=== PATIENT | female | born 1965 | race Caucasian/White ===

== ENCOUNTER → 2016-12-15 | Outpatient (CLI) | payer BC ==
[~2016-12-15] MED LIST: IBUP-103 PO; MULT-506 PO; OMEG10007 PO
== END | disposition home or self-care (01) ==
LOC: C.PAPS 10:43
PROVIDERS: ATTEND Obstetrics & Gynecology
DX: Z01.419 Encounter for gynecological examination (general) (routine) without abnormal findings (principal)

== ENCOUNTER → 2017-01-10 | Outpatient (CLI) | payer BC ==
--- NOTE | 2017-01-10 16:06 | MAMMOGRAPHY REPORT ---
BILATERAL DIGITAL SCREENING MAMMOGRAM TOMOSYNTHESIS WITH CAD: 01/10/2017 CLINICAL HISTORY: Routine screening. TECHNIQUE: Breast tomosynthesis in addition to standard 2D mammography was performed. Current study was also evaluated with a Computer Aided Detection (CAD) system. COMPARISON: Comparison is made to exams dated: 01/07/2016 mammogram, 01/02/2015 mammogram, 07/16/2014 eduardo mogram, 11/09/2013 mammogram, 10/19/2012 mammogram, and 10/06/2011 mammogram - [facility] BREAST COMPOSITION: The tissue of both breasts is heterogeneously dense, which may obscure small mas ses. FINDINGS: There is a possible cluster of faint microcalcifications in the upper outer middle one thi rd of the right breast, for which additional spot magnification views are recommended. No other suspicious mass, architectural distortion or cluster of microcalcifications is seen. IMPRESSION: ACR BI-RADS CATEGORY 0: INCOMPLETE EVALUATION: NEED ADDITIONAL IMAGING EVALUATION The possible cluster of microcalcifications in the right upper outer breast needs additional evaluati on. The patient will be called to schedule an appointment. Approximately 10% of breast cancers are not detected with mammography. A negative mammographic report should not delay biopsy if a clinically suggestive mass is present. Kendal De La Rosa M.D. ay/:01/10/2017 15:50:49 Sports Management Internship: Parviz VAZQUEZ(Lyndon)(M), [facility] letter sent: Addl Imaging 0 BI-RADS Code: ACR BI-RADS Category 0: Incomplete Evaluation: Need Additional Imaging Evaluation
== END | disposition home or self-care (01) ==
LOC: C.MAMM 07:43
PROVIDERS: ATTEND Obstetrics & Gynecology
DX: Z12.31 Encounter for screening mammogram for malignant neoplasm of breast (principal)

== ENCOUNTER → 2017-01-18 | Outpatient (CLI) | payer BC ==
--- NOTE | 2017-01-18 15:58 | MAMMOGRAPHY REPORT ---
UNILATERAL RIGHT DIGITAL DIAGNOSTIC MAMMOGRAM: 01/18/2017 CLINICAL HISTORY: 51-year-old woman called back from screening mammography for a possible cluster of microcalcifications in the upper outer middle one third of the right breast. Patient was previously followed with diagnostic mammograms for microcalcifications in the lateral anterior, and medial middl e one third of the right breast. TECHNIQUE: Spot magnification right CC and ML views were obtained. COMPARISON: Comparison is made to exams dated: 01/07/2016 mammogram, 01/02/2015 mammogram, 07/16/2014 eduardo mogram, 11/09/2013 ultrasound, 11/09/2013 mammogram, and 10/19/2012 mammogram - [facility]. BREAST COMPOSITION: The tissue of the right breast is extremely dense, which lowers the sensitivity of mammography. FINDINGS: There is a 1.8 mm cluster of amorphous microcalcifications in the upper outer approximate 11:00 axis of the right breast, 3.6 cm distal to the nipple. There is a loose grouping of punctate m icrocalcifications in the approximate 9:00 middle one third of the right breast located 4.3 cm distal to the nipple on the CC view. This grouping appears stable dating back to spot magnification views performed 05/11/2013. Microcalcifications previously observed in the far medial right breast were no longer identified on the screening mammogram. The microcalcifications in the 11:00 axis are possibly faintly visualized on the 01/02/2015 spot magn ification views, in retrospect. They appear increased in number compared to those exams and are ther efore indeterminate. Definitive characterization with a stereotactic guided biopsy is recommended. No obvious associated mass or architectural distortion. IMPRESSION: ACR BI-RADS CATEGORY 4B: INTERMEDIATE SUSPICION FOR MALIGNANCY 1. Right breast stereotactic guided biopsy is recommended for a 1.8 mm cluster of amorphous microcal cifications in the upper outer quadrant, approximate 11:00 axis, of the right breast. 2. Other faint clustered microcalcifications in the lateral anterior right breast which had been fol lowed with spot magnification views appear stable to less conspicuous on the current exam, and were p reviously considered stable and benign. Calcifications in the medial right breast were no longer diana ntified on the screening mammogram. These results and recommendations were discussed with the patient at the time of the exam. She tenta tively scheduled the right breast stereotactic biopsy prior to leaving our department. Approximately 10% of breast cancers are not detected with mammography. A negative mammographic report should not delay biopsy if a clinically suggestive mass is present. Kendal De La Rosa M.D. ay/:01/18/2017 14:25:09 Pbx Manager: Bernadine SALAS)(Power), [facility] letter sent: Abnormal 4/5 BI-RADS Code: ACR BI-RADS Category 4B: Intermediate Suspicion For Malignancy
== END | disposition home or self-care (01) ==
LOC: C.MAMM 13:28
PROVIDERS: ATTEND Obstetrics & Gynecology
DX: R92.2 Inconclusive mammogram (principal); R92.0 Mammographic microcalcification found on diagnostic imaging of breast

== ENCOUNTER → 2017-02-09 | Outpatient (CLI) | payer BC ==
--- NOTE | 2017-02-09 08:52 | Discharge Instructions ---
Discharge Instructions Procedure Procedure Date: Feb 09, 2017. Reason for visit: Right Calcifications. Discharge Discharge Date: Feb 09, 2017. Discharge Diagnosis: post right breast stereotactic guided biopsy Instructions Activity Recommendations: Additional Limitations (see below) Return to School/Work: no limitations Recommended Home Diet: No Limitations Provider Instructions: ACTIVITY RECOMMENDATIONS: * No lifting, pushing, pulling or exercising the affected side for three days. RETURN TO SCHOOL/WORK: * You may return to work/school after the procedure, but do not perform any strenuous activities for 24 to 48 hours. MEDICATIONS: * Tylenol (two 325 mg) every four to six hours if needed for mild pain (if not allergic to Tylenol), best in first 24 hours. Then switch over to Advil. DIET: * Resume previous diet. SPECIAL CARE INSTRUCTIONS: * Keep biopsy site dry for 24 hours. May shower after 24 hours, but do not soak (bathe) incision. * May remove Tegaderm (plastic patch) tomorrow AFTER showering. * Leave the steri-strips on for one week. Allow the steri-strips to fall off by themselves. If not off after one week, you may remove them. You may place a Bandaid crosswise over the strips, if desired. * Apply ice 10 minutes on and 10 minutes off as needed. * Wear a bra at bedtime to sleep more comfortably for 2-3 days. * Your referring physician should have the results after approximately 5 to 7 business days. * Call for unusual bleeding, fever, drainage, etc or if you have any questions call [phone] during normal business hours or after hours call Dr De La Rosa, . FOLLOW UP VISIT: Follow-up with Referring Physician as scheduled. Allergies Coded Allergies: Terbinafine (Verified Allergy, Unknown, rash, 12/15/15) Syd Merino Recommendations: Call your doctor if: * Temperature above 101 degrees * Pain not relieved by pain medicine ordered * There is increased drainage or redness from any incision * You have any unanswered questions or concerns. Your Doctors Instructions noted above were prepared by provider Kendal De La Rosa. Patient Signature Section: Patient Instructions Signature Page Kandice Pedroza Patient (or Guardian) Signature/Date: I have read and understand the instructions given to me by my caregivers. Caregiver/RN/Doctor Signature/Date: The above-named patient and/or guardian has received patient instructions on this date. + Original Patient Signature Page (only) stays with chart. Please make copy for patient.
--- NOTE | 2017-02-09 12:24 | MAMMOGRAPHY REPORT ---
UNILATERAL RIGHT DIGITAL DIAGNOSTIC MAMMOGRAM: 02/09/2017 CLINICAL HISTORY: Indeterminate clustered microcalcifications in the upper outer middle one third of the right breast. Patient presents for stereotactic guided biopsy. Please refer to report for right breast stereotactic guided biopsy performed at the same time for rico suarez detail. IMPRESSION: POST PROCEDURE IMAGING FOR MARKER PLACEMENT Please refer to report for right breast stereotactic guided biopsy performed at the same time for rico suarez detail. Approximately 10% of breast cancers are not detected with mammography. A negative mammographic report should not delay biopsy if a clinically suggestive mass is present. Kendal De La Rosa M.D. ay/:02/09/2017 08:53:20 Rn Operating Room: Parviz VAZQUEZ(Lyndon)(M), [facility] BI-RADS Code: Post Procedure Imaging For Marker Placement
--- NOTE | 2017-02-09 12:24 | MAMMOGRAPHY REPORT ---
STEREOTACTIC GUIDED BIOPSY RIGHT BREAST: 02/09/2017 CLINICAL HISTORY: Indeterminate clustered microcalcifications in the upper outer middle one third of the right breast. Patient presents for stereotactic guided biopsy. COMPARISON: Comparison is made to exams dated: 01/10/2017 mammogram, 01/07/2016 mammogram, 01/02/2015 eduardo mogram, 07/16/2014 mammogram, 11/09/2013 ultrasound, and 11/07/2012 mammogram - [facility]. PATIENT CONSENT: After explaining the risks, benefits and alternatives of the procedure to the patien t, informed consent was obtained both verbally and in writing. Specific risks include: Bleeding, inf ection, puncture of adjacent structure, pain, nontarget biopsy, sampling error, metal allergy and med ication reaction. PROCEDURE DESCRIPTION: A time-out was performed and the right breast was confirmed as the site of bio psy. The patient was placed prone on the stereotactic biopsy table and the breast was placed in CC fr om above compression. A sail finisher hand image was obtained that demonstrated the clustered microcalcifications in question. They are amenable to sterotactic biopsy. Then +15 and -15 stereo pair images were obt ained. The calcifications were targeted utilizing the coordinates obtained by the computer. The skin was prepped with Betadine. 1% Lidocaine with and without epinipherine was administered as local anes thesia. A small skin incision was made. Through the incision, the needle was inserted to the depth d etermined by the computer. 6 samples were obtained using a [email or web address] Eviva 9-gauge vacuum-assisted biopsy device. The specimen radiograph demonstrated several community health representative microcalcifications, therefore, a metallic marker was placed at the biopsy site. There was no immediate complication. Hemostasis was achieved after several minutes of manual compression. The samples were sent to pathology in two appr opriately labeled containers, "with calcifications" and "without calcifications". All of the samples were obtained from the same single biopsy site. Postprocedure CC and ML views of the right breast were obtained. There is a small, 1 cm hematoma an d new metallic biopsy marker at the site of the previously observed clustered microcalcifications. IMPRESSION: STEREOTACTIC GUIDED BIOPSY Status post right breast stereotactic guided biopsy of a small cluster of microcalcifications in the upper outer middle one third of the breast, with biopsy marker placed at the site. The patient will receive notification of the biopsy results from her referring physician. Kendal De La Rosa M.D. ay/:02/09/2017 09:11:11 Parts Professional: Parviz SALAS)(Power), [facility]
== END | disposition home or self-care (01) ==
LOC: C.MAMM 07:59
PROVIDERS: ATTEND Obstetrics & Gynecology
DX: R92.0 Mammographic microcalcification found on diagnostic imaging of breast (principal); N60.91 Unspecified benign mammary dysplasia of right breast

== ENCOUNTER → 2018-02-10 | Outpatient (CLI) | payer OTHER ==
--- NOTE | 2018-02-13 13:10 | MAMMOGRAPHY REPORT ---
BILATERAL DIGITAL SCREENING MAMMOGRAM TOMOSYNTHESIS WITH CAD: 02/10/2018 CLINICAL HISTORY: Routine screening. Patient has no complaints. TECHNIQUE: The study was acquired using full field digital technology and interpreted from soft copy. Breast tomosynthesis in addition to standard 2D mammography was performed. Current study was also ev aluated with a Computer Aided Detection (CAD) system. COMPARISON: Comparison is made to exams dated: 02/09/2017 mammogram, 01/18/2017 mammogram, 01/10/2017 ma mmogram, 01/07/2016 mammogram, 01/02/2015 mammogram, and 07/16/2014 mammogram - [facility]. BREAST COMPOSITION: The tissue of both breasts is heterogeneously dense, which may obscure small mass es. FINDINGS: No suspicious masses, calcifications, or areas of architectural distortion are noted in either breast . There has been no significant interval change compared to prior exams. A biopsy clip is again note d within the right superior breast from prior benign stereotactic biopsy. IMPRESSION: ACR BI-RADS CATEGORY 2: BENIGN There is no mammographic evidence of malignancy. A 1 year screening mammogram is recommended.( [id number]) The patient will receive written notification of the results. Some breast cancers are not detected with mammography. A negative mammographic report should not antelmo y biopsy if a clinically suggestive mass is present. Erna Mcghee M.D. ah/:02/10/2018 15:29:17 Fermentation Scientist: RT Cindy(Lyndon)(M), [facility] letter sent: Normal 1/2 BI-RADS Code: ACR BI-RADS Category 2: Benign
== END | disposition home or self-care (01) ==
LOC: C.MAMM 14:58
PROVIDERS: ATTEND Obstetrics & Gynecology
DX: Z12.31 Encounter for screening mammogram for malignant neoplasm of breast (principal)